=== PATIENT | male | born 1975 | race American Indian/Alaskan Native ===

== ENCOUNTER 2017-11-16 04:21 | Inpatient (IN) | payer BC, OTHER ==
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
[2017-11-16 07:37] LABS: Basophils # (Auto) 0.1 K/mm3 (0.0-0.1); Basophils % (Auto) 0.7 % (0.0-1.8); Eosinophils # (Auto) 0.1 K/mm3 (0.0-0.4); Eosinophils % (Auto) 0.6 % (0.0-4.3); Hematocrit 50.2 % (35.5-45.6); Hemoglobin 15.9 gm/dl (11.8-15.2); Lymphocytes # (Auto) 3.5 K/mm3 (1.2-5.4); Lymphocytes % (Auto) 29.2 % (13.4-35.0); Mean Corpuscular HGB Conc 32 % (32-34); Mean Corpuscular Hemoglobin 28 pg (28-32); Mean Corpuscular Volume 89 fl (84-94); Monocytes # (Auto) 0.7 K/mm3 (0.0-0.8); Platelet Count 222 K/mm3 (140-440); Red Blood Count 5.62 M/mm3 (3.65-5.03); Red Cell Distribution Width 14.2 % (13.2-15.2)
[2017-11-16 08:06] LABS: BUN/Creatinine Ratio 16; Blood Urea Nitrogen 11 mg/dL (9-20); Calcium 9.3 mg/dL (8.4-10.2); Hemolysis Index 73
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
[2017-11-16] MEDS ORDERED: NACL ONE (08:20)
--- NOTE | 2017-11-16 08:21 | XRay Report ---
NECK SOFT TISSUE RADIOGRAPHS INDICATION: Chest pain. COMPARISON: None similar at this institution. FINDINGS: AP and lateral neck soft tissue radiographs demonstrate patent airway with grossly unremarkable epiglottic contour, to the extent assessed. Bilateral upper lung zone reticulonodular interstitial infiltrates. Cervical spine straightening with hazy visualization up to C6; further inferior obscured due to shoulder soft tissues. CONCLUSION: No acute significant neck soft tissue radiographic abnormality with other findings, as described. Thank you for the opportunity to participate in this patient's care.
[2017-11-16] MEDS ORDERED: MORPHINE IV ONE (08:44)
[2017-11-16] MEDS ORDERED: TORADOL IV ONE (08:44)
[2017-11-16] MEDS ORDERED: MORPHINE ONE (08:51)
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
[2017-11-16] MEDS ORDERED: DUONEB *Not for PRN Use IH ONE (10:19)
[2017-11-16] MEDS ORDERED: ZITHROMAX 500 MG in NACL 0.9% 250ML 250 ML IV ONE (11:00)
[2017-11-16] MEDS ORDERED: cefTRIAXone 1 GM in NACL 0.9% 20 ML IV ONE (11:00)
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
[2017-11-16] MEDS ORDERED: PERCOCET 5/325 PO PRN (15:00)
[2017-11-16] MEDS ORDERED: MILK OF MAGNESIA PO PRN (15:00)
[2017-11-16] MEDS ORDERED: TYLENOL PO PRN (15:00)
[2017-11-16] MEDS ORDERED: AMBIEN PO PRN (15:00)
[2017-11-16] MEDS ORDERED: DULCOLAX PR PRN (15:00)
[2017-11-16] MEDS ORDERED: ZOFRAN IV PRN (15:00)
[2017-11-16] MEDS ORDERED: DUONEB *Not for PRN Use IH (15:04)
[2017-11-16] MEDS: DUONEB *Not for PRN Use IH SCH ×2 (15:47→20:01)
[2017-11-16] MEDS: LEVAQUIN 750MG/150ML 750 MG/150 ML BAG IV SCH (15:52)
[2017-11-16] MEDS: HABITROL TD SCH (15:52)
[2017-11-16] MEDS: PEPCID IV SCH ×2 (15:52→22:56)
[2017-11-16] MEDS: HEPARIN SUB-Q SCH ×2 (15:55→21:54)
[2017-11-17] MEDS: DUONEB *Not for PRN Use IH SCH ×4 (02:18→20:11)
[2017-11-17] MEDS: HEPARIN SUB-Q SCH ×3 (05:24→21:58)
[2017-11-17 06:12] LABS: Basophils % (Auto) 0.2 % (0.0-1.8); Hematocrit 48.8 % (35.5-45.6); Hemoglobin 16.2 gm/dl (11.8-15.2); Lymphocytes # (Auto) 1.4 K/mm3 (1.2-5.4); Lymphocytes % (Auto) 16.3 % (13.4-35.0); Mean Corpuscular HGB Conc 33 % (32-34); Mean Corpuscular Hemoglobin 30 pg (28-32); Mean Corpuscular Volume 89 fl (84-94); Monocytes # (Auto) 0.2 K/mm3 (0.0-0.8); Monocytes % (Auto) 1.9 % (0.0-7.3); Platelet Count 212 K/mm3 (140-440); Red Blood Count 5.46 M/mm3 (3.65-5.03); Red Cell Distribution Width 14.1 % (13.2-15.2)
[2017-11-17 06:37] LABS: Alanine Aminotransferase 23 units/L (7-56); Albumin 3.9 g/dL (3.9-5); BUN/Creatinine Ratio 17; Blood Urea Nitrogen 12 mg/dL (9-20); Calcium 9.5 mg/dL (8.4-10.2); Hemolysis Index 11
[2017-11-17] MEDS: PEPCID IV SCH (09:54)
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
[2017-11-17] MEDS ORDERED: ROCEPHIN/NS 2 GM/100 ML 2 GM/100 ML BAG IV SCH (13:00)
[2017-11-17] MEDS: cefTRIAXone 2 GM in NACL 0.9% 20 ML IV SCH (15:00)
[2017-11-17] MEDS: HABITROL TD SCH (16:37)
[2017-11-17] MEDS: LEVAQUIN 750MG/150ML 750 MG/150 ML BAG IV SCH (17:19)
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
[2017-11-17] MEDS: PEPCID PO SCH (21:58)
[2017-11-18] MEDS: DUONEB *Not for PRN Use IH SCH ×5 (02:24→21:37)
[2017-11-18] MEDS: HEPARIN SUB-Q SCH ×3 (06:17→22:55)
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
[2017-11-18] MEDS: cefTRIAXone 2 GM in NACL 0.9% 20 ML IV SCH (10:56)
[2017-11-18] MEDS: PEPCID PO SCH ×2 (10:56→22:55)
--- NOTE | 2017-11-18 11:16 | Progress Note ---
Assessment and Plan Assessment: 1) Bilateral nodular pneumonia: unknown etiology ? infectious (TB, mycobacterial , bacterial, viral) versus non-infectious (sarcoidosis, connective tissue disease) -Chest CT showed diffuse bilateral pulmonary nodular interstitial infiltrates. -Chest x-ray showed diffuse bilateral pulmonary infiltrates. -HIV rapid antigen negative 2) Bilateral maxillary and severe left sphenoid sinusitis. 3) Possible pharingitis 4) Tobacco dependence 5) Leukocytosis - from #1 - resolved 7) Hypoxemia - from # 1 8) NATALIO 9) GERD Plan: -follow-up blood cultures -follow-up respiratory cultures, procalcitonin -follow-up influenza antigen PCR in nasopharinx -follow-up Legionella urine antigen, Streptococcus pneumoniae urine antigen, Aspergillus antigen, Cryptococcal serum antigen -follow-up AFB sputum x 3 and quantiferon TB Gold -follow-up CRP, EZEQUIEL with reflex, ANCA, ADI level -continue levaquin and ceftriaxone IV -respiratory isolation until TB is r/o I will be off until Nov 24, but available over the phone, please call me for questions. Thank you Dr Rodriges for your consultation, will follow up with you. Deysi Kilpatrick MD Infectious Diseases Specialist [facility] M [phone] O [phone] - Subjective Date of service: 11/18/17 Principal diagnosis: teresita nodular pneumonia Interval history: Feels better, no fever. O2 sat went down to 87% Current Antimicrobials: Levaquin 11/16 ceftriaxone Previous Antimicrobials: Microbiology: Blood cultures: 11/16 ngtd Objective - Exam Narrative Exam: General appearance: Alert in NAD, conversant Eyes: anicteric sclerae, moist conjunctivae; no lid-lag; PERRLA HENT: Atraumatic; oropharynx clear Neck: Trachea midline; supple, no thyromegaly or lymphadenopathy Lungs: bibasilar crackles CV: RRR, no murmurs Abdomen: Soft, non-tender; obese Extremities: No peripheral edema or extremity lymphadenopathy Skin: Neck hyperpigmentation Psych: Appropriate affect, alert and oriented to person, place and time. Neuro: alert and oriented x 3. Moving all extermities Lines: No CVL / PICC - Constitutional Vitals: Vital Signs Temp Pulse Resp BP Pulse Ox 97.7 F 66 20 127/73 87 11/18/17 08:38 11/18/17 08:38 11/18/17 08:46 11/18/17 08:38 11/18/17 08:38 Temperature -Last 24 Hours Temperature 97.7 F Temperature 97.9 F Temperature 97.7 F - Labs CBC & Chem 7: 11/17/17 05:31 11/17/17 05:31
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
[2017-11-18] MEDS: HABITROL TD SCH (16:03)
[2017-11-18] MEDS: LEVAQUIN 750MG/150ML 750 MG/150 ML BAG IV SCH (16:04)
[2017-11-18 20:01] LABS: Myeloperoxidase Antibody <1.0 AI (<1.0)
[2017-11-19] MEDS: DUONEB *Not for PRN Use IH SCH ×4 (02:19→21:08)
[2017-11-19] MEDS: HEPARIN SUB-Q SCH ×3 (06:29→23:00)
--- NOTE | 2017-11-19 09:06 | XRay Report ---
AP CHEST: HISTORY: Pulmonary edema Moderate cardiomegaly is identified which appears increased since 11/16/17. Pulmonary venous congestion appears stable. No consolidation, pleural effusion or pneumothorax is identified. IMPRESSION: Increased cardiomegaly. Stable pulmonary venous congestion.
[2017-11-19] MEDS: PEPCID PO SCH ×2 (09:39→23:00)
[2017-11-19] MEDS: cefTRIAXone 2 GM in NACL 0.9% 20 ML IV SCH (10:06)
[2017-11-19] MEDS: LASIX IV SCH (14:43)
[2017-11-19] MEDS: HABITROL TD SCH (16:21)
[2017-11-19] MEDS: LEVAQUIN 750MG/150ML 750 MG/150 ML BAG IV SCH (16:22)
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
[2017-11-19 21:00] LABS: HIV-1 RNA QN PCR <1.30 Log cps/mL (<1.30); HIV-1 RNA QN PCR <20 copies/mL (<20)
[2017-11-20] MEDS: LASIX IV SCH ×2 (02:00→15:30)
[2017-11-20] MEDS: DUONEB *Not for PRN Use IH SCH ×4 (02:20→20:57)
[2017-11-20] MEDS: HEPARIN SUB-Q SCH ×2 (06:32→15:23)
[2017-11-20 07:56] LABS: BUN/Creatinine Ratio 21; Blood Urea Nitrogen 15 mg/dL (9-20); Calcium 9.4 mg/dL (8.4-10.2); Hemolysis Index 9
[2017-11-20] MEDS ORDERED: D50W (25GM) Syringe IV PRN (09:32)
[2017-11-20] MEDS: PEPCID PO SCH (10:06)
[2017-11-20] MEDS: cefTRIAXone 2 GM in NACL 0.9% 20 ML IV SCH (10:07)
--- NOTE | 2017-11-20 11:17 | XRay Report ---
AP CHEST :11/20/17 CLINICAL: Difficulty breathing. COMPARISON:11/19/17 FINDINGS: Stable cardiomegaly and central vascular congestion. No pulmonary consolidation. No pleural effusion. The bones and soft tissues are unremarkable. No tubes or lines. IMPRESSION: No change. Cardiomegaly and pulmonary venous hypertension. No pulmonary edema.
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
[2017-11-20 16:09] VITALS: BP 112/42
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
[2017-11-20] MEDS: HABITROL TD SCH (18:04)
[2017-11-22 23:04] LABS: ANA Screen, IFA Negative (Negative)
--- NOTE | 2017-11-25 12:58 | Query- Dyspnea ---
Francisca Zelaya____Zahira Date: 11/25/17 Medical Housekeeper/CDS: [place] / [place] Phone#:____[phone] Exercise your independent professional judgment when responding to query. Questions asked do not imply a particular answer is desired or expected. We greatly appreciate your clarification on this issue. Clinical Documentation States: 42 year old male was admitted on 11/16/17 The discharge summary (Dr. Rodriges) states " Discharge diagnosis COPD with acute exacerbation NATALIO (obstructive sleep apnea) " The pulmonology progress note (Dr. Leyva 11/20/17) states " Acute Respiratory Distress " Clinical Findings Show: O2 SAT: 87 Respiratory rate: 24 O2 Flow rate: 2L/min Please clarify if the patient had any of the following conditions based on the above clinical findings: [ x] Respiratory Failure [ ] Acute [x ] Acute on Chronic [ ] Chronic [ ] Respiratory failure due to trauma [ ] Acute Respiratory Distress Syndrome [ ] Other: [ ] Unable to determine [ ] Comment/Explanation: Present on Admission: [y ] Yes (Y) [ ] Clinically undeterminable (W) [ ] No (N) Please also document response in your Progress Notes and/or Discharge Summary and indicate if the condition was present on admission. SOILA
== END 2017-11-20 23:00 | disposition home or self-care (01) | DRG 205 ==
LOC: ED 04:21 → 3A 11:27
PROVIDERS: ADMIT Internal Medicine; ATTEND Internal Medicine
PROC: 4A033R1 Measurement of Arterial Saturation, Peripheral, Percutaneous Approach (ICD-10-PCS; 2017-11-18)
PROC: 5A0935Z Assistance with Respiratory Ventilation, Less than 24 Consecutive Hours (ICD-10-PCS; principal; 2017-11-19)
PROC: 5A0935Z Assistance with Respiratory Ventilation, Less than 24 Consecutive Hours (ICD-10-PCS; 2017-11-20)
DX: M94.0 Chondrocostal junction syndrome [Tietze] (principal); J18.9 Pneumonia, unspecified organism; J96.21 Acute and chronic respiratory failure with hypoxia; Z68.43 Body mass index [BMI] 50.0-59.9, adult; J44.1 Chronic obstructive pulmonary disease with (acute) exacerbation; A15.9 Respiratory tuberculosis unspecified; F17.200 Nicotine dependence, unspecified, uncomplicated; E66.01 Morbid (severe) obesity due to excess calories; G47.33 Obstructive sleep apnea (adult) (pediatric); R07.9 Chest pain, unspecified; D72.829 Elevated white blood cell count, unspecified; J32.0 Chronic maxillary sinusitis; J32.3 Chronic sphenoidal sinusitis; I27.20 Pulmonary hypertension, unspecified; K21.9 Gastro-esophageal reflux disease without esophagitis; Z71.6 Tobacco abuse counseling; V49.9XXA Car occupant (driver) (passenger) injured in unspecified traffic accident, initial encounter; Y93.89 Activity, other specified; Y92.89 Other specified places as the place of occurrence of the external cause; Y99.8 Other external cause status
CPT/HCPCS: 36415; 36600; 70360; 71010; 71020; 71260; 72125; 80048; 80053; 82164; 82550; 82803; 82962; 83735; 83880; 84484; 85025; 86021; 86038; 86140; 87040; 87400; 87449; 87536; 87806; 93005; 93010; 94640; 94660; 96365; 96375; 99406; J0456; J0696; J1644; J1815; J1885; J1940; J1956; J2270; J2920; J7050; Q9967